=== PATIENT | female | born 1980 | race Caucasian/White ===

== ENCOUNTER 2016-10-09 18:40 | Emergency (ER) | payer OTHER ==
[2016-10-09 18:55] VITALS: RESP 18
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
[2016-10-09] MEDS ORDERED: KETOROLAC 60 MG/2 ML VIAL IM STA (19:22)
--- NOTE | 2016-10-09 20:04 | XR ---
EXAMINATION TYPE: XR lumbar spine 2 or 3V DATE OF EXAM: 10/09/2016 7:15 PM COMPARISON: NONE HISTORY: Pain following injury TECHNIQUE: 3 views FINDINGS: There is no evidence of fracture or malalignment. No significant degenerative disc or degen erative facet change. No incidental findings. IMPRESSION: Negative examination.
[2016-10-09 20:21] VITALS: BP 143/82; PULSE 85; TEMP 97.9
== END 2016-10-09 20:15 | disposition home or self-care (01) ==
LOC: EC 18:40
DX: M54.5 Low back pain (principal); F17.200 Nicotine dependence, unspecified, uncomplicated; Z91.013 Allergy to seafood; Z88.8 Allergy status to other drugs, medicaments and biological substances
CPT/HCPCS: 72100; 99283; 96372; J1885

== ENCOUNTER 2017-11-23 14:12 | Emergency (ER) | payer OTHER ==
[2017-11-23] MEDS ORDERED: ASPIRIN 81 MG PO STA (14:53)
[2017-11-23] MEDS ORDERED: NITROGLYCERIN SL TABS 0.4 MG TAB SUBLINGUAL STA (15:15)
[2017-11-23 15:18] LABS: Basophils % (A) 1 %; Eosinophils # (A) 0.3 k/uL (0-0.7); Eosinophils % (A) 4 %; HCT 40.4 % (34.0-46.0); HGB 13.5 gm/dL (11.4-16.0); Lymphocytes # (A) 2.1 k/uL (1.0-4.8); Lymphocytes % (A) 30 %; MCH 28.8 pg (25.0-35.0); MCHC 33.3 g/dL (31.0-37.0); MCV 86.5 fL (80.0-100.0); Mean Platelet Volume 7.6; Monocytes # (A) 0.4 k/uL (0-1.0); Monocytes % (A) 6 %; Neutrophils # (A) 4.3 k/uL (1.3-7.7); Neutrophils % (A) 60 %; Platelet Count 264 k/uL (150-450); RBC 4.68 m/uL (3.80-5.40); RDW 13.4 % (11.5-15.5); WBC 7.3 k/uL (3.8-10.6)
[2017-11-23 15:27] LABS: ALT 27 U/L (9-52); AST 16 U/L (14-36); Albumin 3.9 g/dL (3.5-5.0); Alkaline Phosphatase 67 U/L (38-126); Anion Gap 10 mmol/L; Blood Urea Nitrogen 13 mg/dL (7-17); Calcium 9.1 mg/dL (8.4-10.2); Carbon Dioxide 25 mmol/L (22-30); Chloride 108 mmol/L (98-107); Glucose 82 mg/dL (74-99); Lipase 105 U/L (23-300); Magnesium 1.9 mg/dL (1.6-2.3); Partial Thromboplastin Time 24.6 sec (22.0-30.0); Potassium 3.8 mmol/L (3.5-5.1); Prothrombin Time 9.5 sec (9.0-12.0); Sodium 143 mmol/L (137-145); Total Bilirubin 0.2 mg/dL (0.2-1.3); Total Protein 6.6 g/dL (6.3-8.2)
--- NOTE | 2017-11-23 15:32 | XR ---
EXAMINATION TYPE: XR chest 2V DATE OF EXAM: 11/23/2017 COMPARISON: 02/12/2008 HISTORY: 37-year-old female with chest pain TECHNIQUE: PA and lateral views FINDINGS: The heart is normal size. Aorta within normal limits. Diffuse peribronchial cuffing is present. No co nsolidation or pleural effusion. Endplate spondylosis midthoracic spine. IMPRESSION: Diffuse peribronchial cuffing could represent bronchitis or asthma. No focal infiltrate.
[2017-11-23 15:36] LABS: Creatine Kinase 83 U/L (30-135)
--- NOTE | 2017-11-23 15:40 | ED ---
Chest Pain HPI - General Chief Complaint: Chest Pain Stated Complaint: chest pains Time Seen by Provider: 11/23/17 14:53 Source: patient, RN notes reviewed Mode of arrival: ambulatory Limitations: no limitations - History of Present Illness Initial Comments: This is a 37-year-old female presents emergency from chief complaint chest pain. Patient states started approximate 45 hours prior arrival while she was watching a movie. She was right-sided chest pain radiates her right arm. She denies any shortness of breath but states it hurts when she takes a deep inspiration. Patient denies any fever, chills. She is a daily smoker heavy smoker. She states that she has no history of hyperlipidemia, hypertension or diabetes. The family heart disease which includes her grandfather. Patient denies any abdominal pain denies any back pain. Patient states that she presses on her chest this increases her symptoms. Denies any neck pain, headache or dizziness. - Related Data Previous Rx's Medication Instructions Recorded Ibuprofen [Motrin] 600 mg PO Q8HR PRN #30 tab 05/10/14 Acetaminophen-Codeine 300-30mg 1 each PO Q4H PRN #20 tablet 10/23/15 [Tylenol w/codeine #3] Cyclobenzaprine [Flexeril] 10 mg PO TID #20 tablet 10/23/15 Cyclobenzaprine [Flexeril] 5 mg PO HS 3 Days tablet 10/09/16 Allergies Allergy/AdvReac Type Severity Reaction Status Date / Time iodine Allergy Unknown Verified 11/23/17 14:19 shellfish derived Allergy Unknown Verified 11/23/17 14:19 Review of Systems ROS Statement: Those systems with pertinent positive or pertinent negative responses have been documented in the HPI. ROS Other: All systems not noted in ROS Statement are negative. Past Medical History Past Medical History: No Reported History History of Any Multi-Drug Resistant Organisms: None Reported Past Surgical History: Appendectomy, Section, Cholecystectomy Past Psychological History: No Psychological Hx Reported Smoking Status: Current every day smoker Past Alcohol Use History: Occasional Past Drug Use History: None Reported General Exam Limitations: no limitations General appearance: alert, in no apparent distress Head exam: Present: atraumatic, normocephalic, normal inspection Eye exam: Present: normal appearance, PERRL, EOMI. Absent: scleral icterus, conjunctival injection, periorbital swelling ENT exam: Present: normal exam, normal oropharynx, mucous membranes moist Neck exam: Present: normal inspection. Absent: tenderness, meningismus, lymphadenopathy Respiratory exam: Present: normal lung sounds bilaterally, chest wall tenderness (Right anterior). Absent: respiratory distress, wheezes, rales, rhonchi, stridor Cardiovascular Exam: Present: regular rate, normal rhythm, normal heart sounds. Absent: systolic murmur, diastolic murmur, rubs, gallop, clicks Extremities exam: Present: normal inspection, full ROM, normal capillary refill. Absent: tenderness, pedal edema, joint swelling, calf tenderness Back exam: Absent: CVA tenderness (R), CVA tenderness (L) Skin exam: Present: warm, dry, intact, normal color. Absent: rash Course Vital Signs 11/23/17 14:17 Temperature 99.2 F Pulse Rate 91 Respiratory 20 Rate Blood Pressure 163/79 O2 Sat by Pulse 99 Oximetry Chest Pain MDM - MDM 37-year-old female presented for chest discomfort. This is reproducible right- sided chest pain. Patient's laboratory unremarkable symptoms started hours before prior arrival. Patient lab work is unremarkable. Patient discharged advised take anti-inflammatories and follow-up with primary care physician. Disposition Clinical Impression: Atypical chest pain Disposition: HOME SELF-CARE Condition: Stable Instructions: Chest Pain (ED) Additional Instructions: Please return to the Emergency Department if symptoms worsen or any other concerns. Referrals: Brandon Bateman MD [Primary Care Provider] - 1-2 days Time of Disposition: 16:08
[2017-11-23 15:50] LABS: Creatine Kinase MB 0.7 ng/mL (0.0-2.4); Troponin I <0.012 ng/mL (0.000-0.034)
[2017-11-23] MEDS ORDERED: KETOROLAC 30 MG/ML 1 ML VIAL IVP STA (16:08)
[2017-11-23 16:16] VITALS: BP 142/72; PULSE 78; RESP 18; TEMP 97.2
== END 2017-11-23 16:44 | disposition home or self-care (01) ==
LOC: EC 14:12
DX: R07.89 Other chest pain (principal); F17.200 Nicotine dependence, unspecified, uncomplicated; Z91.048 Other nonmedicinal substance allergy status; Z91.013 Allergy to seafood
CPT/HCPCS: 36415; 93005; 80053; 82550; 82553; 83690; 83735; 84484; 85025; 85610; 85730; 71046; 99285; 96374; J1885

== ENCOUNTER 2018-07-05 17:41 | Emergency (ER) | payer OTHER ==
[2018-07-05 17:56] VITALS: BP 135/84; PULSE 100; RESP 18; TEMP 98.5
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
[2018-07-05] MEDS ORDERED: KETOROLAC 30 MG/ML 1 ML VIAL IVP STA (18:42)
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
[2018-07-05] MEDS ORDERED: KETOROLAC 30 MG/ML 1 ML VIAL IM STA (18:49)
== END 2018-07-05 18:59 | disposition home or self-care (01) ==
LOC: EC 17:41
DX: S09.90XA Unspecified injury of head, initial encounter (principal); F17.200 Nicotine dependence, unspecified, uncomplicated; Z91.013 Allergy to seafood; Z91.048 Other nonmedicinal substance allergy status; Z53.8 Procedure and treatment not carried out for other reasons; Y04.0XXA Assault by unarmed brawl or fight, initial encounter
CPT/HCPCS: 70450; 99284; 96372; J1885

== ENCOUNTER 2018-11-05 07:36 | Emergency (ER) | payer OTHER ==
[2018-11-05 07:42] VITALS: BP 181/102; PULSE 100; RESP 18; TEMP 98.5
--- NOTE | 2018-11-05 07:51 | ED ---
General Adult HPI - General Chief complaint: Extremity Injury, Upper Stated complaint: finger injury Time Seen by Provider: 11/05/18 07:38 Source: patient Mode of arrival: ambulatory - History of Present Illness Initial comments: Dictation was produced using [employer] DX dictation software. please excuse any grammatical, word or spelling errors. Chief Complaint: 38-year-old female presents with fourth left hand digit pain History of Present Illness: 38-year-old female. She states recently she was falling backwards. She was trying to catch herself when she injured a finger on her left hand. She states that she hyperextended at the DIP joint of the left fourth digit. Patient states she has limited function in flexion and extension. Patient states that initially really swollen and that she had to pop it back into place. The ROS documented in this emergency department record has been reviewed and confirmed by me. Those systems with pertinent positive or negative responses have been documented in the HPI. All other systems are other negative and/or noncontributory. PHYSICAL EXAM: General Impression: Alert and oriented x3, not in acute distress HEENT: Normocephalic atraumatic, extra-ocular movements intact, pupils equal and reactive to light bilaterally, mucous membranes moist. Cardiovascular: Heart regular rate and rhythm, S1&S2 audible, no murmurs, rubs or gallops Chest: Lungs clear to auscultation bilaterally, no rhonchi, no wheeze, no rales Abdomen: Bowel sounds present, abdomen soft, non-tender, non-distended, no organ omegaly Musculoskeletal: Pulses present and equal in all extremities, no peripheral edema Motor: no focal deficits noted Neurological: CN II-XII grossly intact, no focal motor or sensory deficits noted Skin: Intact with no visualized rashes Psych: Normal affect and mood Left hand: Erythema at the DIP joint without significant swelling. Limited flexion and extension at the DIP joint. Tenderness to palpation of the entire left DIP joint ED course: 38-year-old female presents with left fourth digit injury as upon arrival are within normal limits. 4 digit x-rays were obtained showing no acute osseous injuries. Patient was placed in a finger splint. Patient given referral to hand specialist. Patient to take [id number] analgesics for pain control. Patient understandable and agreeable to plan. Patient clear for discharge. - Related Data Home Medications Medication Instructions Recorded Confirmed Butalb/APAP/Caff 50-325-40Mg 1 tab PO BID PRN 11/05/18 11/05/18 [Fioricet 50-325-40] Allergies Allergy/AdvReac Type Severity Reaction Status Date / Time iodine Allergy Unknown Verified 11/05/18 07:52 shellfish derived Allergy Unknown Verified 11/05/18 07:52 Review of Systems ROS Statement: Those systems with pertinent positive or pertinent negative responses have been documented in the HPI. ROS Other: All systems not noted in ROS Statement are negative. Past Medical History Past Medical History: No Reported History History of Any Multi-Drug Resistant Organisms: None Reported Past Surgical History: Appendectomy, Section, Cholecystectomy Past Psychological History: No Psychological Hx Reported Smoking Status: Current every day smoker Past Alcohol Use History: Occasional Past Drug Use History: None Reported Course Vital Signs 11/05/18 07:40 Temperature 98.5 F Pulse Rate 100 Respiratory 18 Rate Blood Pressure 181/102 O2 Sat by Pulse 96 Oximetry Disposition Clinical Impression: Finger sprain Disposition: HOME SELF-CARE Condition: Good Instructions (If sedation given, give patient instructions): Harsh Bahena (ED) Is patient prescribed a controlled substance at d/c from ED?: No Referrals: Brandon Bateman MD [Primary Care Provider] - 1-2 days Felice Ayala DO [Medical Doctor] - 1-2 days Time of Disposition: 08:28
--- NOTE | 2018-11-05 08:08 | XR ---
EXAMINATION TYPE: XR finger LT DATE OF EXAM: 11/05/2018 CLINICAL HISTORY: pain TECHNIQUE: 3 views of the left fourth digit are submitted. COMPARISON: None FINDINGS: No displaced fracture is seen with certainty. Joint spaces are well-preserved. Mild soft t issue swelling noted. IMPRESSION: No acute displaced fracture or dislocation.
== END 2018-11-05 08:33 | disposition home or self-care (01) ==
LOC: EC 07:36
DX: S63.615A Unspecified sprain of left ring finger, initial encounter (principal); F17.200 Nicotine dependence, unspecified, uncomplicated; Z90.49 Acquired absence of other specified parts of digestive tract; Z91.013 Allergy to seafood; Z91.048 Other nonmedicinal substance allergy status; W18.39XA Other fall on same level, initial encounter
CPT/HCPCS: 99283

== ENCOUNTER → 2020-02-09 | Outpatient (CLI) | payer OTHER ==
--- NOTE | 2020-02-09 09:28 | XR ---
EXAMINATION TYPE: XR knee limited LT DATE OF EXAM: 02/09/2020 CLINICAL HISTORY: pain TECHNIQUE: 2 views of the left knee are obtained. COMPARISON: None. FINDINGS: There is no acute fracture/dislocation. The tri-compartment joint spaces appear within no rmal limits. Moderate joint effusion noted. The overlying soft tissue appears unremarkable. IMPRESSION: There is no acute fracture or dislocation ICD 10 NO FRACTURE, INITIAL EVALUATION
== END | disposition home or self-care (01) ==
LOC: RADXRMAIN 08:59
PROVIDERS: ATTEND Internal Medicine
DX: M25.562 Pain in left knee (principal)

== ENCOUNTER 2020-05-16 07:26 | Emergency (ER) | payer OTHER ==
[2020-05-16 07:36] VITALS: TEMP 98
--- NOTE | 2020-05-16 07:53 | ED ---
Head Injury HPI - General Chief complaint: Head Injury Stated complaint: [facility] Time Seen by Provider: 05/16/20 07:39 Source: patient, RN notes reviewed Mode of arrival: ambulatory Limitations: no limitations - History of Present Illness Initial comments: This a 39-year-old female sent emergency Department with chief complaint of head injury. Patient states that she works though [employer]. Patient states that she was struck in the left side of her head on the temporal region which again immediately dizzy and passed out. Patient states that she cold her shoulder she was out for approximately 30-60 seconds. She states at this time she has a mild headache she has no other complaints. Denies any blood thinners no significant past medical history. - Related Data Home Medications Medication Instructions Recorded Confirmed Butalb/APAP/Caff 50-325-40Mg 1 tab PO BID PRN 11/05/18 11/05/18 [Fioricet 50-325-40] Allergies/Adverse reactions: Allergies Allergy/AdvReac Type Severity Reaction Status Date / Time bee venom protein (honey bee) Allergy Anaphylaxis Verified 05/16/20 07:36 iodine Allergy Unknown Verified 05/16/20 07:36 shellfish derived Allergy Unknown Verified 05/16/20 07:36 Review of Systems ROS Statement: Those systems with pertinent positive or pertinent negative responses have been documented in the HPI. ROS Other: All systems not noted in ROS Statement are negative. Past Medical History Past Medical History: No Reported History History of Any Multi-Drug Resistant Organisms: None Reported Past Surgical History: Appendectomy, Section, Cholecystectomy Past Psychological History: No Psychological Hx Reported Smoking Status: Current every day smoker Past Alcohol Use History: Occasional Past Drug Use History: None Reported General Exam Limitations: no limitations General appearance: alert, in no apparent distress Head exam: Present: atraumatic, normocephalic, normal inspection, other (Mild tenderness over the left temporal region) Eye exam: Present: normal appearance, PERRL, EOMI. Absent: scleral icterus, conjunctival injection, periorbital swelling ENT exam: Present: normal exam, normal oropharynx, mucous membranes moist Neck exam: Present: normal inspection, full ROM. Absent: tenderness, m eningismus, lymphadenopathy Respiratory exam: Present: normal lung sounds bilaterally. Absent: respiratory distress, wheezes, rales, rhonchi, stridor Cardiovascular Exam: Present: regular rate, normal rhythm, normal heart sounds. Absent: systolic murmur, diastolic murmur, rubs, gallop, clicks Neurological exam: Present: alert, oriented X3, CN II-XII intact, reflexes normal, other (Finger to nose intact bilaterally without overshooting). Absent: motor sensory deficit Skin exam: Present: warm, dry, intact, normal color. Absent: rash Course Vital Signs 05/16/20 07:28 Temperature 98 F Pulse Rate 84 Respiratory 18 Rate Blood Pressure 163/102 O2 Sat by Pulse 100 Oximetry Medical Decision Making - Medical Decision Making CT of the brain was obtained there is no acute intracranial hemorrhage mass effect or any acute abnormality. Patient is currently stable, normal neuro exam. Patient be discharged in stable condition diagnosis head injury return parameters were discussed. Disposition Clinical Impression: Head injury Disposition: HOME SELF-CARE Condition: Stable Instructions (If sedation given, give patient instructions): Head Injury (ED) Additional Instructions: Please return to the Emergency Department if symptoms worsen or any other concerns. Is patient prescribed a controlled substance at d/c from ED?: No Referrals: Brandon Bateman MD [Primary Care Provider] - 1-2 days Time of Disposition: 08:19
--- NOTE | 2020-05-16 08:15 | CT ---
EXAMINATION TYPE: CT brain wo con DATE OF EXAM: 05/16/2020 COMPARISON: 07/05/2018 INDICATION: Head Injury/LOC DLP: 1111.4 mGycm, Automated exposure control for dose reduction was used. CONTRAST: None CT of the brain is performed utilizing 3 mm thick sections through the posterior fossa and 3 mm thick sections through the remaining calvarium. Study is performed within 24 hours of arrival to the hosp ital. No abnormal hyperdensity is present to suggest an acute intracranial hemorrhage. No mass lesion is evident. No acute infarcts are evident. Ventricles and sulci are appropriate for the patient age. Paranasal sinuses and mastoid air cells within the [id number] are clear. IMPRESSIONS: 1. Normal CT Brain
[2020-05-16 08:29] VITALS: BP 130/90; PULSE 81; RESP 16
== END 2020-05-16 08:29 | disposition home or self-care (01) ==
LOC: EC 07:26
DX: S06.891A Other specified intracranial injury with loss of consciousness of 30 minutes or less, initial encounter (principal); F17.200 Nicotine dependence, unspecified, uncomplicated; Z91.030 Bee allergy status; Z91.013 Allergy to seafood; Z91.048 Other nonmedicinal substance allergy status; Y04.2XXA Assault by strike against or bumped into by another person, initial encounter; Y93.89 Activity, other specified; Y92.69 Other specified industrial and construction area as the place of occurrence of the external cause; Y99.0 Civilian activity done for income or pay
CPT/HCPCS: 70450; 99284

== ENCOUNTER → 2021-06-21 | Outpatient (CLI) | payer OTHER ==
--- NOTE | 2021-06-21 11:30 | XR ---
EXAMINATION TYPE: XR ankle limited RT DATE OF EXAM: 06/21/2021 COMPARISON: None HISTORY: Right ankle pain TECHNIQUE: 2 view right ankle FINDINGS: Ankle mortise appears intact. Soft tissues are normal. No acute fracture or dislocation is evident. Calcaneal heel spurs are present. Follow-up studies can be performed 7-10 days acute trauma for continued pain IMPRESSION: 1. No acute osseous abnormality right ankle. 2. Calcaneal heel spurs.
--- NOTE | 2021-06-21 11:34 | XR ---
EXAMINATION TYPE: XR foot limited RT DATE OF EXAM: 06/21/2021 COMPARISON: None HISTORY: Tripped and fall pain x4 days TECHNIQUE: 2 view right foot FINDINGS: No acute fracture or dislocation is evident. Calcaneal heel spurs are present. There may be some mild soft tissue swelling over the dorsum of the foot. Follow up exams can be performed 7-10 days from acute trauma for continued pain. IMPRESSION: 1. No acute osseous abnormality. 2. Calcaneal heel spurs
== END | disposition home or self-care (01) ==
LOC: RADXRMAIN 10:18
PROVIDERS: ATTEND Internal Medicine
DX: M25.571 Pain in right ankle and joints of right foot (principal); M79.671 Pain in right foot; M77.31 Calcaneal spur, right foot

== ENCOUNTER → 2021-07-09 | Outpatient (CLI) | payer OTHER ==
[2021-07-09 17:57] LABS: Basophils # (A) 0.05 X 10*3/uL (0.00-0.10); Basophils % (A) 0.5 %; Eosinophils # (A) 0.18 X 10*3/uL (0.04-0.35); Eosinophils % (A) 1.9 %; HGB 14.6 g/dL (12.0-15.0); Lymphocytes # (A) 2.59 X 10*3/uL (0.90-5.00); Lymphocytes % (A) 27.2 %; MCH 30.5 pg (27.0-32.0); MCHC 33.2 g/dL (32.0-37.0); MCV 91.9 fL (80.0-97.0); Mean Platelet Volume 10.8 fL (9.5-12.2); Monocytes # (A) 0.55 X 10*3/uL (0.20-1.00); Monocytes % (A) 5.8 %; Neutrophils # (A) 6.11 X 10*3/uL (1.80-7.70); Neutrophils % (A) 64.3 %; Platelet Count 295 X 10*3/uL (140-440); RBC 4.79 X 10*6/uL (4.10-5.20); RDW 13.7 % (11.5-14.5); WBC 9.51 X 10*3/uL (4.50-10.00)
[2021-07-09 20:52] LABS: African American GFR (CKD) 94.3 (60.0-200.0); Albumin 4.2 g/dL (3.8-4.9); Albumin/Globulin Ratio 2.04 (1.60-3.17); Anion Gap 12.2 mmol/L (10.00-18.00); BUN/Creat Ratio 17.36 Ratio (12.00-20.00); Blood Urea Nitrogen 15.4 mg/dL (9.0-27.0); Calcium 9.2 mg/dL (8.7-10.3); Carbon Dioxide 24.2 mmol/L (20.0-27.5); Globulin 2.1 g/dL (1.6-3.3); Non-African American GFR(CKD) 81.4 (60.0-200.0); Potassium 4.5 mmol/L (3.5-5.5); T4, Free (Free Thyroxine) 1.35 ng/dL (0.800-1.800); Total Bilirubin 0.4 mg/dL (0.30-1.20); Total Protein 6.3 g/dL (6.2-8.2)
== END | disposition home or self-care (01) ==
LOC: LABWHC1 13:35
PROVIDERS: ATTEND Internal Medicine
DX: Z00.00 Encounter for general adult medical examination without abnormal findings (principal)
CPT/HCPCS: 36415; 80053; 83036; 84439; 84443; 84481; 85025

== ENCOUNTER 2022-07-28 23:07 | Emergency (ER) | payer OTHER ==
[2022-07-29 00:09] LABS: Basophils % (A) 0 %; Eosinophils # (A) 0.2 k/uL (0-0.7); Eosinophils % (A) 2 %; HCT 38.4 % (34.0-46.0); HGB 13.4 gm/dL (11.4-16.0); Lymphocytes # (A) 2.7 k/uL (1.0-4.8); Lymphocytes % (A) 28 %; MCH 31.7 pg (25.0-35.0); MCHC 34.9 g/dL (31.0-37.0); MCV 90.8 fL (80.0-100.0); Monocytes # (A) 0.5 k/uL (0-1.0); Monocytes % (A) 5 %; Neutrophils # (A) 6.1 k/uL (1.3-7.7); Neutrophils % (A) 64 %; Platelet Count 255 k/uL (150-450); RBC 4.23 m/uL (3.80-5.40); RDW 13.6 % (11.5-15.5); WBC 9.7 k/uL (3.8-10.6)
[2022-07-29 00:11] LABS: Appearance,Urine Clear (Clear); Bilirubin,Urine Negative (Negative); Blood,Urine Negative (Negative); Color,Urine Colorless; Glucose,Urine (UA) Negative (Negative); Ketones,Urine Negative (Negative); Leukocyte Esterase,Urine Negative (Negative); Nitrite,Urine Negative (Negative); Protein,Urine Negative (Negative); Specific Gravity,Urine 1.005 (1.001-1.035); Urobilinogen,Urine <2.0 mg/dL (<2.0)
--- NOTE | 2022-07-29 00:32 | ED ---
General Adult HPI - General Chief complaint: Back Pain/Injury Stated complaint: Kidney Infection Time Seen by Provider: 07/28/22 23:29 Source: patient, RN notes reviewed Mode of arrival: ambulatory Limitations: no limitations - History of Present Illness Initial comments: 42-year-old female presents to the emergency Department with complaints of bilateral flank pain, onset today. States she feels as if she is unable to fully empty her bladder with voiding. Has not had any nausea or vomiting. No dysuria or hematuria. Denies any injury to her back, but does have discomfort with repositioning, particularly when going from a reclined to sitting upright. No fever, chills, chest pain, shortness of breath, abdominal pain, diarrhea, or constipation. No pain radiating down the legs. No loss of bowel or bladder control. No saddle anesthesia. - Related Data Home Medications Medication Instructions Recorded Confirmed Butalb/APAP/Caff 50-325-40Mg 1 tab PO BID PRN 11/05/18 11/05/18 [Fioricet 50-325-40] Previous Rx's Medication Instructions Recorded Cyclobenzaprine [Flexeril] 10 mg PO TID PRN #15 tab 07/29/22 Allergies Allergy/AdvReac Type Severity Reaction Status Date / Time bee venom protein (honey bee) Allergy Anaphylaxis Verified 07/28/22 23:11 iodine Allergy Unknown Verified 07/28/22 23:11 shellfish derived Allergy Unknown Verified 07/28/22 23:11 Review of Systems ROS Statement: Those systems with pertinent positive or pertinent negative responses have been documented in the HPI. ROS Other: All systems not noted in ROS Statement are negative. Past Medical History Past Medical History: Hypertension History of Any Multi-Drug Resistant Organisms: None Reported Past Surgical History: Appendectomy, Section, Cholecystectomy Past Psychological History: Depression Smoking Status: Current every day smoker Past Alcohol Use History: Occasional Past Drug Use History: None Reported General Exam Limitations: no limitations General appearance: alert, in no apparent distress ENT exam: Present: normal exam, normal oropharynx, mucous membranes moist Respiratory exam: Present: normal lung sounds bilaterally. Absent: respiratory distress, wheezes, rales, rhonchi, stridor Cardiovascular Exam: Present: regular rate, normal rhythm, normal heart sounds. Absent: systolic murmur, diastolic murmur, rubs, gallop, clicks GI/Abdominal exam: Present: soft, normal bowel sounds. Absent: distended, t enderness, guarding, rebound, rigid Back exam: Present: CVA tenderness (R), CVA tenderness (L), muscle spasm. Absent: paraspinal tenderness, vertebral tenderness Expanded Back exam: Negative Straight Leg Raising: Left, Right Psychiatric exam: Present: normal affect, normal mood Course Vital Signs 07/28/22 07/29/22 23:09 02:01 Temperature 98.4 F 98 F Pulse Rate 115 H 99 Respiratory 20 16 Rate Blood Pressure 203/100 161/98 O2 Sat by Pulse 99 98 Oximetry - Reevaluation(s) Reevaluation #1: 07/29/22 01:35 Patient updated on results. Able to void 250 mls. Discussed likelihood that this is musculoskeletal discomfort. Flexeril and Motrin prescribed. Patient verbalizes understanding. Medical Decision Making - Medical Decision Making 42-year-old female presents to the emergency Department with complaints of back and flank pain. Upon exam, patient is noted to have discomfort with repositioning. Expresses concern for UTI. Physical exam findings are unremarkable. Laboratory studies were obtained and were negative. KUB was unremarkable as well. Results were discussed with patient. Explained that this is likely muscular. Patient was given Flexeril prior to departure. Instructed to follow up with her PCP for a recheck due to elevated blood pressure and as needed for back/flank pain. Return parameters discussed in detail. Patient verbalizes understanding and agrees with this plan. Attending: Sukh. - Lab Data Result diagrams: 07/28/22 23:49 07/28/22 23:49 Lab Results 07/28/22 07/28/22 07/28/22 Range/Units 23:49 23:49 23:49 WBC 9.7 (3.8-10.6) k/uL RBC 4.23 (3.80-5.40) m/uL Hgb 13.4 (11.4-16.0) gm/dL Hct 38.4 (34.0-46.0) % MCV 90.8 (80.0-100.0) fL MCH 31.7 (25.0-35.0) pg MCHC 34.9 (31.0-37.0) g/dL RDW 13.6 (11.5-15.5) % Plt Count 255 (150-450) k/uL MPV 9.0 Neutrophils % 64 % Lymphocytes % 28 % Monocytes % 5 % Eosinophils % 2 % Basophils % 0 % Neutrophils # 6.1 (1.3-7.7) k/uL Lymphocytes # 2.7 (1.0-4.8) k/uL Monocytes # 0.5 (0-1.0) k/uL Eosinophils # 0.2 (0-0.7) k/uL Basophils # 0.0 (0-0.2) k/uL Sodium 141 (137-145) mmol/L Potassium 3.8 (3.5-5.1) mmol/L Chloride 107 (98-107) mmol/L Carbon Dioxide 29 (22-30) mmol/L Anion Gap 5 mmol/L BUN 13 (7-17) mg/dL Creatinine 0.73 (0.52-1.04) mg/dL Est GFR (CKD-EPI)AfAm >90 (>60 ml/min/1.73 sqM) Est GFR (CKD-EPI)NonAf >90 (>60 ml/min/1.73 sqM) Glucose 99 (74-99) mg/dL Calcium 9.0 (8.4-10.2) mg/dL Total Bilirubin 0.2 (0.2-1.3) mg/dL AST 27 (14-36) U/L ALT 21 (4-34) U/L Alkaline Phosphatase 68 (38-126) U/L Total Protein 6.5 (6.3-8.2) g/dL Albumin 4.0 (3.5-5.0) g/dL Urine Color Colorless Urine Appearance Clear (Clear) Urine pH 6.0 (5.0-8.0) Ur Specific [place] 1.005 (1.001-1.035) Urine Protein Negative (Negative) Urine Glucose (UA) Negative (Negative) Urine Ketones Negative (Negative) Urine Blood Negative (Negative) Urine Nitrite Negative (Negative) Urine Bilirubin Negative (Negative) Urine Urobilinogen <2.0 (<2.0) mg/dL Ur Leukocyte Esterase Negative (Negative) - Radiology Data Radiology results: report reviewed, image reviewed Interpreted by me: KUB x-ray was obtained. Report was reviewed in its entirety. Impression per Dr. Torres is nonacute abdomen. Disposition Clinical Impression: Back pain Disposition: HOME SELF-CARE Condition: Stable Instructions (If sedation given, give patient instructions): Acute Low Back Pain (ED) Additional Instructions: Take Motrin as needed for discomfort. Flexeril is a muscle relaxer; it may make you groggy so do not drive when you take it. Rest. Apply heat to sore areas. Empty your bladder frequently. Increase your intake of fluids. Follow up with your PCP for a recheck. Return to the emergency department with any new, worsening, or concerning symptoms. Prescriptions: Cyclobenzaprine [Flexeril] 10 mg PO TID PRN #15 tab PRN Reason: Muscle Spasm Is patient prescribed a controlled substance at d/c from ED?: No Referrals: Brandon Bateman MD [Primary Care Provider] - 1-2 days Time of Disposition: 01:49
[2022-07-29 00:36] LABS: ALT 21 U/L (4-34); AST 27 U/L (14-36); African American GFR (CKD) >90 (>60 ml/min/1.73 sqM); Alkaline Phosphatase 68 U/L (38-126); Anion Gap 5 mmol/L; Blood Urea Nitrogen 13 mg/dL (7-17); Carbon Dioxide 29 mmol/L (22-30); Chloride 107 mmol/L (98-107); Glucose 99 mg/dL (74-99); Non-African American GFR(CKD) >90 (>60 ml/min/1.73 sqM); Potassium 3.8 mmol/L (3.5-5.1); Sodium 141 mmol/L (137-145); Total Bilirubin 0.2 mg/dL (0.2-1.3); Total Protein 6.5 g/dL (6.3-8.2)
--- NOTE | 2022-07-29 00:54 | XR ---
EXAMINATION TYPE: XR KUB DATE OF EXAM: 07/29/2022 COMPARISON: NONE HISTORY: Pain TECHNIQUE: 2 views upright FINDINGS: There is no sign of intestinal obstruction or pneumoperitoneum. Fecal pattern is normal. No evidence of a mass. There are clips from cholecystectomy. Lung bases are clear. IMPRESSION: Nonacute abdomen.
[2022-07-29] MEDS ORDERED: CYCLOBENZAPRINE 10 MG TAB PO STA (01:43)
[2022-07-29 02:02] VITALS: BP 161/98; PULSE 99; RESP 16; TEMP 98
== END 2022-07-29 02:02 | disposition home or self-care (01) ==
LOC: EC 23:07
DX: M54.50 Low back pain, unspecified (principal); I10 Essential (primary) hypertension; F17.200 Nicotine dependence, unspecified, uncomplicated; Z90.89 Acquired absence of other organs; Z91.013 Allergy to seafood; Z91.030 Bee allergy status
CPT/HCPCS: 36415; 51798; 74018; 80053; 81003; 85025; 99284

== ENCOUNTER 2023-02-09 22:12 | Emergency (ER) | payer OTHER ==
[2023-02-09] MEDS ORDERED: BENZOCAINE/MENTHOL LOZENG 1 EACH LOZENGE MUCOUS MEM STA (22:43)
--- NOTE | 2023-02-10 00:28 | ED ---
ENT HPI - General Chief complaint: ENT Stated complaint: Excessive sleeping Time Seen by Provider: 02/09/23 22:26 Source: patient Mode of arrival: ambulatory Limitations: no limitations - History of Present Illness Initial comments: Patient is a 42-year-old female presents to the emergency department for fatigue and sore throat. It started this morning along with runny nose. Patient states she has been napping throughout the day. Denies fever, chest pain, shortness of breath, abdominal pain, nausea, vomiting. Denies any recent weight loss, night sweats. - Related Data Home Medications Medication Instructions Recorded Confirmed Butalb/APAP/Caff 50-325-40Mg 1 tab PO BID PRN 11/05/18 11/05/18 [Fioricet 50-325-40] Previous Rx's Medication Instructions Recorded Cyclobenzaprine [Flexeril] 10 mg PO TID PRN #15 tab 07/29/22 Benzocaine/Menthol Lozeng [Cepacol 1 each MUCOUS MEM Q4HR PRN #30 02/10/23 lozenge] lozenge Ibuprofen [Motrin] 800 mg PO Q8HR PRN #30 tab 02/10/23 Allergies Allergy/AdvReac Type Severity Reaction Status Date / Time bee venom protein (honey bee) Allergy Anaphylaxis Verified 02/09/23 22:16 iodine Allergy Unknown Verified 02/09/23 22:16 shellfish derived Allergy Unknown Verified 02/09/23 22:16 Review of Systems ROS Statement: Those systems with pertinent positive or pertinent negative responses have been documented in the HPI. ROS Other: All systems not noted in ROS Statement are negative. Past Medical History Past Medical History: Hypertension History of Any Multi-Drug Resistant Organisms: None Reported Past Surgical History: Appendectomy, Section, Cholecystectomy Past Psychological History: Depression Smoking Status: Current every day smoker Past Alcohol Use History: Occasional Past Drug Use History: None Reported General Exam Limitations: no limitations General appearance: alert, in no apparent distress Head exam: Present: atraumatic, normocephalic, normal inspection Eye exam: Present: normal appearance, PERRL, EOMI. Absent: scleral icterus, conjunctival injection, periorbital swelling ENT exam: Present: normal oropharynx Neck exam: Present: normal inspection. Absent: tenderness, meningismus, lymphadenopathy Respiratory exam: Present: normal lung sounds bilaterally. Absent: respiratory distress, wheezes, rales, rhonchi, stridor Cardiovascular Exam: Present: regular rate, normal rhythm, normal heart sounds. Absent: systolic murmur, diastolic murmur, rubs, gallop, clicks Neurological exam: Present: alert, oriented X3, CN II-XII intact Psychiatric exam: Present: normal affect, normal mood Skin exam: Present: warm, dry, intact, normal color. Absent: rash Course Vital Signs 02/09/23 02/10/23 02/10/23 22:13 00:00 00:36 Temperature 99.7 F H 98.3 F Pulse Rate 112 H 84 95 Respiratory 18 19 18 Rate Blood Pressure 185/105 149/87 137/82 O2 Sat by Pulse 99 95 97 Oximetry Medical Decision Making - Medical Decision Making Was pt. sent in by a medical professional or institution (, PA, SENIOR NETWORK ADMINISTRATOR, urgent care, hospital, or residential...) When possible be specific @ -No Did you speak to anyone other than the patient for history (EMS, parent, family, police, friend...)? What history was obtained from this source @ -No Did you review nursing and triage notes (agree or disagree)? Why? @ -I reviewed and agree with nursing and triage notes Were old charts reviewed (outside hosp., previous admission, EMS record, old EKG, old radiological studies, urgent care reports/EKG's, residential records)? Report findings @ -No old charts were reviewed Differential Diagnosis (chest pain, altered mental status, abdominal pain women, abdominal pain men, vaginal bleeding, weakness, fever, dyspnea, syncope, headache, dizziness, GI bleed, back pain, seizure, CVA, palpatations, mental health)? @ URI, sinusitus,strep pharyngitis, viral pharyngitis, pneumonia, bronchitis- this list is not meant to be all-inclusive EKG interpreted by me (3pts min.). @ None X-rays interpreted by me (1pt min.). @ -None done CT interpreted by me (1pt min.). @ -None done U/S interpreted by me (1pt. min.). @ -None done What testing was considered but not performed or refused? (CT, X-rays, U/S, labs)? Why? @ -None What meds were considered but not given or refused? Why? @ -None] Did you discuss the management of the patient with other professionals (professionals i.e. DrShelli, PA, SENIOR NETWORK ADMINISTRATOR, lab, RT, psych nurse, marriage and family social worker, immigration lawyer, teacher, radiation safety officer, residential case manager)? Give summary @ -[No] Was smoking cessation discussed for >3mins.? @ -[No] Was critical care preformed (if so, how long)? @ -[No] Were there social determinants of health that impacted care today? How? (Homel essness, low income, unemployed, alcoholism, drug addiction, transportation, low edu. Level, literacy, decrease access to med. care, half-way, rehab)? @ -[No] Was there de-escalation of care discussed even if they declined (Discuss DNR or withdrawal of care, Hospice)? DNR status @ -[No] What co-morbidities impacted this encounter? (DM, HTN, Smoking, COPD, CAD, Cancer, CVA, ARF, Chemo, Hep., AIDS, mental health diagnosis, sleep apnea, morbid obesity)? @ -[None] Was patient admitted / discharged? Hospital course, mention meds given and route, prescriptions, significant lab abnormalities, going to OR and other pertinent info. @ -Discharged. Viral and strep testing negative. Clinical presentation consistent with upper respiratory infection. Patient discharged symptomatic management Undiagnosed new problem with uncertain prognosis? @ -[No] Drug Therapy requiring intensive monitoring for toxicity (Heparin, Nitro, Insulin, Cardizem)? @ -[No] Were any procedures done? @ -[No] Diagnosis/symptom? @ -Acute upper respiratory infection Acute, or Chronic, or Acute on Chronic? @ Acute Uncomplicated (without systemic symptoms) or Complicated (systemic symptoms)? @ -[Uncomplicated Side effects of treatment? @ -[No] Exacerbation, Progression, or Severe Exacerbation? @ -[No] Poses a threat to life or bodily function? How? (Chest pain, [place], [place], pneumonia, PE, COPD, DKA, ARF, appy, cholecystitis, CVA, Diverticulitis, Homicidal, Suicidal, threat to staff... and all critical care pts) @ -No Dr. Candelaria is my attending - Lab Data Lab Results 02/09/23 02/09/23 Range/Units 22:30 22:30 Influenza Type A (PCR) Not Detected (Not Detectd) Influenza Type B (PCR) Not Detected (Not Detectd) RSV (PCR) Not Detected (Not Detectd) SARS-CoV-2 (PCR) Not Detected (Not Detectd) Group A Strep (PCR) NOT DETECTED (Not Detectd) Disposition Clinical Impression: Acute upper respiratory infection Disposition: HOME SELF-CARE Condition: Good Instructions (If sedation given, give patient instructions): Upper Respiratory Infection (ED) Additional Instructions: Take medication as directed. Please follow-up with your primary care provider in 1-2 days. Return to the emergency department if you experience new, concerning, or worsening symptoms. Prescriptions: Benzocaine/Menthol Lozeng [Cepacol lozenge] 1 each MUCOUS MEM Q4HR PRN #30 lozenge PRN Reason: Pain Ibuprofen [Motrin] 800 mg PO Q8HR PRN #30 tab PRN Reason: Pain Is patient prescribed a controlled substance at d/c from ED?: No Referrals: Brandon Bateman MD [Primary Care Provider] - 1-2 days
[2023-02-10 00:38] VITALS: BP 137/82; PULSE 95; RESP 18; TEMP 98.3
== END 2023-02-10 00:38 | disposition home or self-care (01) ==
LOC: EC 22:12
DX: J06.9 Acute upper respiratory infection, unspecified (principal); I10 Essential (primary) hypertension; F17.200 Nicotine dependence, unspecified, uncomplicated; Z20.822 Contact with and (suspected) exposure to COVID-19; Z91.030 Bee allergy status; Z91.013 Allergy to seafood; Z88.8 Allergy status to other drugs, medicaments and biological substances
CPT/HCPCS: 87636; 87651; 99283

== ENCOUNTER 2023-08-16 23:39 | Emergency (ER) | payer OTHER ==
[2023-08-17] MEDS ORDERED: SODIUM CHLORIDE 0.9% 1,000 ML IV STA (00:17)
[2023-08-17] MEDS ORDERED: methylPREDNISolone SOD SUCCI 125 MG/2 ML VIAL IV STA (00:17)
[2023-08-17] MEDS ORDERED: KETOROLAC 15 MG/ML 1 ML VIAL IVP STA (00:19)
[2023-08-17] MEDS ORDERED: DEXAMETHASONE SOD PHOSPHATE 10 MG/ML 1 ML VIAL IVP STA (00:19)
--- NOTE | 2023-08-17 00:37 | ED ---
SOB HPI - General Chief Complaint: Shortness of Breath Stated Complaint: Swollen throat, difficulty breathing Time Seen by Provider: 08/17/23 00:06 Source: patient, RN notes reviewed, old records reviewed Mode of arrival: ambulatory Limitations: no limitations - History of Present Illness Initial Comments: This is a 43-year-old female to the emergency department for evaluation today. Patient presents today for evaluation regards to dose of breath swelling of the neck with difficulty taking a deep breath. Patient is severe sore throat and wheezing that was causing her difficulty breathing. She denies any recent fever. MD Complaint: shortness of breath, cough -: days(s) Severity: severe Severity scale (1-10): 10 Quality: aching, sharp Consistency: constant Improves With: nothing Worsens With: nothing Context: recent URI, recent illness, elevated blood glucose Associated Symptoms: pain with inspiration (Sore throat) Treatments Prior to Arrival: none - Related Data Home Medications Medication Instructions Recorded Confirmed Butalb/APAP/Caff 50-325-40Mg 1 tab PO BID PRN 11/05/18 11/05/18 [Fioricet 50-325-40] Previous Rx's Medication Instructions Recorded Cyclobenzaprine [Flexeril] 10 mg PO TID PRN #15 tab 07/29/22 Benzocaine/Menthol Lozeng [Cepacol 1 each MUCOUS MEM Q4HR PRN #30 02/10/23 lozenge] lozenge Ibuprofen [Motrin] 800 mg PO Q8HR PRN #30 tab 02/10/23 Amoxic-Pot Clav 875-125Mg 1 tab PO Q12HR #20 tablet 08/17/23 [Augmentin 875-125] dexAMETHasone [Decadron] 6 mg PO TID #15 tablet 08/17/23 Allergies Allergy/AdvReac Type Severity Reaction Status Date / Time bee venom protein (honey bee) Allergy Anaphylaxis Verified 08/16/23 23:53 iodine Allergy Unknown Verified 08/16/23 23:53 shellfish derived Allergy Unknown Verified 08/16/23 23:53 Review of Systems ROS Statement: Those systems with pertinent positive or pertinent negative responses have been documented in the HPI. ROS Other: All systems not noted in ROS Statement are negative. Past Medical History Past Medical History: Hypertension History of Any Multi-Drug Resistant Organisms: None Reported Past Surgical History: Appendectomy, Section, Cholecystectomy Past Psychological History: Depression Smoking Status: Current every day smoker Past Alcohol Use History: Occasional Past Drug Use History: None Reported General Exam Limitations: no limitations General appearance: alert, in no apparent distress, anxious Head exam: Present: atraumatic, normocephalic, normal inspection Eye exam: Present: normal appearance, PERRL, EOMI. Absent: scleral icterus, conjunctival injection, periorbital swelling ENT exam: Present: normal exam, mucous membranes moist Neck exam: Present: normal inspection. Absent: tenderness, meningismus, lym phadenopathy Respiratory exam: Present: normal lung sounds bilaterally. Absent: respiratory distress, wheezes, rales, rhonchi, stridor Cardiovascular Exam: Present: regular rate, normal rhythm, normal heart sounds. Absent: systolic murmur, diastolic murmur, rubs, gallop, clicks GI/Abdominal exam: Present: soft, normal bowel sounds. Absent: distended, tenderness, guarding, rebound, rigid Extremities exam: Present: normal inspection, full ROM, normal capillary refill. Absent: tenderness, pedal edema, joint swelling, calf tenderness Back exam: Present: normal inspection Neurological exam: Present: alert, oriented X3, CN II-XII intact Psychiatric exam: Present: normal affect, normal mood Skin exam: Present: warm, dry, intact, normal color. Absent: rash Course Vital Signs 08/16/23 08/17/23 23:54 05:11 Temperature 99 F 98.7 F Pulse Rate 101 H 98 Respiratory 18 18 Rate Blood Pressure 167/111 148/98 O2 Sat by Pulse 98 98 Oximetry - Reevaluation(s) Reevaluation #1: Medical record is reviewed Reevaluation #2: Patient symptoms are improved Reevaluation #3: Patient informed results and questions answered Reevaluation #4: Was pt. sent in by a medical professional or institution (, PA, MANAGEMENT COORDINATOR, urgent care, hospital, or jail...) When possible be specific @ -no Did you speak to anyone other than the patient for history (EMS, parent, family, police, friend...)? What history was obtained from this source @ -no Did you review nursing and triage notes (agree or disagree)? Why? @ -agree Are old charts reviewed (outside hosp., previous admission, EMS record, old EKG, old radiological studies, urgent care reports/EKG's, jail records)? Report findings @ -yes Differential Diagnosis (chest pain, altered mental status, abdominal pain women, abdominal pain men, vaginal bleeding, weakness, fever, dyspnea, syncope, headache, dizziness, GI bleed, back pain, seizure, CVA, palpatations, mental health, musculoskeletal)? @ -prior EKG interpreted by me (3pts min.). @ -no X-rays interpreted by me (1pt min.). @ -no CT interpreted by me (1pt min.). @ -yes positive for tonsillar abscess U/S interpreted by me (1pt. min.). @ -no What testing was considered but not performed or refused? (CT, X-rays, U/S, labs)? Why? @ -none What meds were considered but not given or refused? Why? @ -none Did you discuss the management of the patient with other professionals (professionals i.e. , PA, MANAGEMENT COORDINATOR, lab, RT, psych nurse, social media campaign manager, textile chemist, teacher, credit administration officer, case management coordinator)? Give summary @ -yes I did speak with the ENT who will see patient in the follow up outpatient setting Was smoking cessation discussed for >3mins.? @ -no Were there social determinants of health that impacted care today? How? (Homelessness, low income, unemployed, alcoholism, drug addiction, tra nsportation, low edu. Level, literacy, decrease access to med. care, half-way, rehab)? @ -none Was there de-escalation of care discussed even if they declined (Discuss DNR or withdrawal of care, Hospice)? DNR status @ -no What co-morbidities impacted this encounter? (DM, HTN, Smoking, COPD, CAD, Cance r, CVA, ARF, Chemo, Hep., AIDS, mental health diagnosis, sleep apnea, morbid obesity)? @ -none Was patient admitted / discharged? Hospital course, mention meds given and route, prescriptions, significant lab abnormalities, going to OR and other pertinent info. @ - 43 female to the emergency room for evaluation of sore throat with tonsillar pain and tonsillar abscess. Patient's pain is well-controlled here in the ER can be discharged home Discharge Was critical care preformed (if so, how long)? @ -no Undiagnosed new problem with uncertain prognosis? @ -no Drug Therapy requiring intensive monitoring for toxicity (Heparin, Nitro, Insulin, Cardizem)? @ -no Were any procedures done? @ -no Diagnosis/symptom? @ -Tonsillitis and tonsillar abscess Acute, or Chronic, or Acute on Chronic? @ -Acute Uncomplicated (without systemic symptoms) or Complicated (systemic symptoms)? @ -Complicated Side effects of treatment? @ -no Exacerbation, Progression, or Severe Exacerbation? @ -exacerbation Poses a threat to life or bodily function? How? (Chest pain, [place], [place], pneumonia, PE, COPD, DKA, ARF, appy, cholecystitis, CVA, Diverticulitis, Homicidal, Suicidal, threat to staff... and all critical care pts) @ -yes possible airway obstruction Reevaluation #5: Differential Dyspnea: Coronary syndrome, arrhythmia, tamponade, asthma, COPD, pulmonary embolism, pneumonia, pneumothorax, pulmonary effusion, anaphylaxis, diabetic ketoacidosis, flailed chest, pulmonary contusion, diaphragmatic rupture, anemia, neuromuscular, this is not meant to be an all-inclusive list. Medical Decision Making - Medical Decision Making 43 female to the emergency room for evaluation of sore throat with tonsillar pain and tonsillar abscess. Patient's pain is well-controlled here in the ER can be discharged home - Lab Data Result diagrams: 08/17/23 00:23 08/17/23 00:23 Lab Results 08/17/23 08/17/23 08/17/23 Range/Units 00:23 00:23 00:23 WBC 14.4 H (3.8-10.6) k/uL RBC 4.69 (3.80-5.40) m/uL Hgb 14.3 (11.4-16.0) gm/dL Hct 41.3 (34.0-46.0) % MCV 88.1 (80.0-100.0) fL MCH 30.5 (25.0-35.0) pg MCHC 34.6 (31.0-37.0) g/dL RDW 13.7 (11.5-15.5) % Plt Count 263 (150-450) k/uL MPV 8.2 Neutrophils % 79 % Lymphocytes % 15 % Monocytes % 4 % Eosinophils % 1 % Basophils % 0 % Neutrophils # 11.3 H (1.3-7.7) k/uL Lymphocytes # 2.2 (1.0-4.8) k/uL Monocytes # 0.6 (0-1.0) k/uL Eosinophils # 0.2 (0-0.7) k/uL Basophils # 0.1 (0-0.2) k/uL PT 9.5 L (10.0-12.5) sec INR 0.8 (<1.2) APTT 27.5 (22.0-30.0) sec D-Dimer 0.28 (<0.60) mg/L FEU Sodium 137 (137-145) mmol/L Potassium 4.6 (3.5-5.1) mmol/L Chloride 103 (98-107) mmol/L Carbon Dioxide 20 L (22-30) mmol/L Anion Gap 14 mmol/L BUN 14 (7-17) mg/dL Creatinine 0.69 (0.52-1.04) mg/dL Est GFR (CKD-EPI)AfAm >90 (>60 ml/min/1.73 sqM) Est GFR (CKD-EPI)NonAf >90 (>60 ml/min/1.73 sqM) Glucose 96 (74-99) mg/dL Calcium 9.4 (8.4-10.2) mg/dL Magnesium 2.0 (1.6-2.3) mg/dL Total Bilirubin 0.7 (0.2-1.3) mg/dL AST 26 (14-36) U/L ALT 19 (4-34) U/L Alkaline Phosphatase 82 (38-126) U/L Troponin I (0.000-0.034) ng/mL NT-Pro-B Natriuret Pep 24 pg/mL Total Protein 7.5 (6.3-8.2) g/dL Albumin 4.4 (3.5-5.0) g/dL Influenza Type A (PCR) (Not Detectd) Influenza Type B (PCR) (Not Detectd) RSV (PCR) (Not Detectd) SARS-CoV-2 (PCR) (Not Detectd) Group A Strep (PCR) (Not Detectd) 08/17/23 08/17/23 08/17/23 Range/Units 00:23 03:53 03:53 WBC (3.8-10.6) k/uL RBC (3.80-5.40) m/uL Hgb (11.4-16.0) gm/dL Hct (34.0-46.0) % MCV (80.0-100.0) fL MCH (25.0-35.0) pg MCHC (31.0-37.0) g/dL RDW (11.5-15.5) % Plt Count (150-450) k/uL MPV Neutrophils % % Lymphocytes % % Monocytes % % Eosinophils % % Basophils % % Neutrophils # (1.3-7.7) k/uL Lymphocytes # (1.0-4.8) k/uL Monocytes # (0-1.0) k/uL Eosinophils # (0-0.7) k/uL Basophils # (0-0.2) k/uL PT (10.0-12.5) sec INR (<1.2) APTT (22.0-30.0) sec D-Dimer (<0.60) mg/L FEU Sodium (137-145) mmol/L Potassium (3.5-5.1) mmol/L Chloride (98-107) mmol/L Carbon Dioxide (22-30) mmol/L Anion Gap mmol/L BUN (7-17) mg/dL Creatinine (0.52-1.04) mg/dL Est GFR (CKD-EPI)AfAm (>60 ml/min/1.73 sqM) Est GFR (CKD-EPI)NonAf (>60 ml/min/1.73 sqM) Glucose (74-99) mg/dL Calcium (8.4-10.2) mg/dL Magnesium (1.6-2.3) mg/dL Total Bilirubin (0.2-1.3) mg/dL AST (14-36) U/L ALT (4-34) U/L Alkaline Phosphatase (38-126) U/L Troponin I <0.012 (0.000-0.034) ng/mL NT-Pro-B Natriuret Pep pg/mL Total Protein (6.3-8.2) g/dL Albumin (3.5-5.0) g/dL Influenza Type A (PCR) Not Detected (Not Detectd) Influenza Type B (PCR) Not Detected (Not Detectd) RSV (PCR) Not Detected (Not Detectd) SARS-CoV-2 (PCR) Detected A (Not Detectd) Group A Strep (PCR) DETECTED A (Not Detectd) - Radiology Data Radiology results: report reviewed (CT chest with soft tissue neck positive for tonsillitis and tonsillar abscess), image reviewed Disposition Clinical Impression: Tonsillitis, Tonsillar abscess, Sore throat, Neck pain Disposition: HOME SELF-CARE Condition: Good Instructions (If sedation given, give patient instructions): Tonsillitis (ED) Prescriptions: Amoxic-Pot Clav 875-125Mg [Augmentin 875-125] 1 tab PO Q12HR #20 tablet dexAMETHasone [Decadron] 6 mg PO TID #15 tablet Is patient prescribed a controlled substance at d/c from ED?: No Referrals: Brandon Bateman MD [Primary Care Provider] - 1-2 days Time of Disposition: 04:00
[2023-08-17] MEDS ORDERED: FAMOTIDINE 20 MG/2 ML VIAL IV STA (00:50)
[2023-08-17 00:56] VITALS: RESP 18
[2023-08-17 00:59] LABS: Basophils # (A) 0.1 k/uL (0-0.2); Basophils % (A) 0 %; Eosinophils # (A) 0.2 k/uL (0-0.7); Eosinophils % (A) 1 %; HCT 41.3 % (34.0-46.0); HGB 14.3 gm/dL (11.4-16.0); Lymphocytes # (A) 2.2 k/uL (1.0-4.8); Lymphocytes % (A) 15 %; MCH 30.5 pg (25.0-35.0); MCHC 34.6 g/dL (31.0-37.0); MCV 88.1 fL (80.0-100.0); Mean Platelet Volume 8.2; Monocytes # (A) 0.6 k/uL (0-1.0); Monocytes % (A) 4 %; Neutrophils # (A) 11.3 k/uL (1.3-7.7); Neutrophils % (A) 79 %; Platelet Count 263 k/uL (150-450); RBC 4.69 m/uL (3.80-5.40); RDW 13.7 % (11.5-15.5); WBC 14.4 k/uL (3.8-10.6)
[2023-08-17 01:05] LABS: ALT 19 U/L (4-34); AST 26 U/L (14-36); African American GFR (CKD) >90 (>60 ml/min/1.73 sqM); Albumin 4.4 g/dL (3.5-5.0); Alkaline Phosphatase 82 U/L (38-126); Anion Gap 14 mmol/L; Blood Urea Nitrogen 14 mg/dL (7-17); Calcium 9.4 mg/dL (8.4-10.2); Carbon Dioxide 20 mmol/L (22-30); Chloride 103 mmol/L (98-107); Glucose 96 mg/dL (74-99); Non-African American GFR(CKD) >90 (>60 ml/min/1.73 sqM); Sodium 137 mmol/L (137-145); Total Bilirubin 0.7 mg/dL (0.2-1.3); Total Protein 7.5 g/dL (6.3-8.2)
[2023-08-17 01:09] LABS: INR 0.8 (<1.2); Partial Thromboplastin Time 27.5 sec (22.0-30.0); Prothrombin Time 9.5 sec (10.0-12.5)
[2023-08-17 01:14] LABS: NT-Pro-B-Type Natriuretic Pept 24 pg/mL
[2023-08-17 01:16] LABS: Potassium 4.6 mmol/L (3.5-5.1)
--- NOTE | 2023-08-17 02:53 | CT ---
EXAM: CT Neck With Intravenous Contrast CLINICAL HISTORY: ITS.REASON CT Reason: pain TECHNIQUE: Axial computed tomography images of the neck with intravenous contrast. CTDI is 11.54 mGy and DLP is 368.9 mGy-cm. This CT exam was performed using one or more of the following dose reduction techniques: automated exposure control, adjustment of the mA and/or kV according to patient size, and/or use of iterative reconstruction technique. COMPARISON: No relevant prior studies available. FINDINGS: Oropharynx: Faucial tonsillitis with left intra-tonsillar abscess measuring 15.0 x 12.2 x 7.2 mm. Prominent lingual tonsils. Hypopharynx: Unremarkable. Larynx: Unremarkable. Normal epiglottis. Trachea: Unremarkable. Retropharyngeal space: Unremarkable. Submandibular/parotid glands: Unremarkable. Glands are normal in size. Thyroid: Unremarkable. No enlarged or calcified nodules. Bones/joints: No acute fracture. Moderate disc degeneration at C5-6 and C6-7 with critical spinal canal stenosis. Recommend MRI of the cervical spine to evaluate for myelopathy. Dental caries with periapical lucency about tooth #13 concern for periapical abscess. Recommend dental consult. Soft tissues: Unremarkable. Vasculature: No acute findings. Lymph nodes: Cervical lymphadenopathy. Lung apices: Unremarkable as visualized. IMPRESSION: Faucial tonsillitis with left intratonsillar abscess measuring 15 x 12.2 x 7.2 mm. Cervical lymphadenopathy. Critical spinal canal stenosis at C5-6 and C6-7. Recommend MRI of the cervical spine to evaluate for myelopathy.
--- NOTE | 2023-08-17 03:11 | CT ---
EXAM: CT Angiography Chest With Intravenous Contrast CLINICAL HISTORY: ITS.REASON CT Reason: pain TECHNIQUE: Axial computed tomographic angiography images of the chest with intravenous contrast. CTDI is 58.84 mGy and DLP is 765.9 mGy-cm. This CT exam was performed using one or more of the following dose reduction techniques: automated exposure control, adjustment of the mA and/or kV according to patient size, and/or use of iterative reconstruction technique. MIP reconstructed images were created and reviewed. COMPARISON: No relevant prior studies available. FINDINGS: Pulmonary arteries: Unremarkable. No CT evidence of pulmonary embolism. Aorta: No acute findings. No thoracic aortic aneurysm. Lungs: Lungs demonstrate bilateral dependent atelectasis. No mass. Pleural space: Unremarkable. No significant effusion. No pneumothorax. Heart: Unremarkable. No cardiomegaly. No significant pericardial effusion. No evidence of RV dysfunction. Bones/joints: No acute fracture. No dislocation. Soft tissues: Unremarkable. Lymph nodes: Unremarkable. No enlarged lymph nodes. Liver: Fatty infiltration of the liver. Gallbladder and bile ducts: Gallbladder has been removed. IMPRESSION: No CT evidence of pulmonary embolism.
[2023-08-17] MEDS ORDERED: AMPICILLIN-SULBACTAM 3 GM in SODIUM CHLORIDE 0.9% 100 ML IVPB STA (03:37)
[2023-08-17] MEDS ORDERED: AMOXIC-POT CLAV 875MG STARTER PACK 2 TAB BTL PO STA (03:59)
[2023-08-17] MEDS ORDERED: dexAMETHasone 2 MG TAB PO STA (03:59)
[2023-08-17] MEDS ORDERED: AMOXIC-POT CLAV 875-125MG 1 EACH TAB PO STA (03:59)
[2023-08-17 05:28] VITALS: BP 148/98; PULSE 98; TEMP 98.7
[2023-08-17] MEDS ORDERED: AMPICILLIN-SULBACTAM 3 GM in SODIUM CHLORIDE 0.9% 100 ML IVPB SCH (10:00)
== END 2023-08-17 05:13 | disposition home or self-care (01) ==
LOC: EC 23:39
DX: U07.1 COVID-19 (principal); J36 Peritonsillar abscess; M54.2 Cervicalgia; I10 Essential (primary) hypertension; F17.200 Nicotine dependence, unspecified, uncomplicated; Z86.59 Personal history of other mental and behavioral disorders; Z91.030 Bee allergy status; Z91.013 Allergy to seafood; Z91.041 Radiographic dye allergy status
CPT/HCPCS: 36415; 87651; 85379; 83880; 80053; 83735; 84484; 85025; 85610; 85730; 87636; 70491; 71275; 99285; 96365; 96375 ×4; 96361; J1100; J2930; J3490; J8540; J0295; J1885; Q9967